=== PATIENT | female | born 1995 | race Caucasian/White ===

== ENCOUNTER 2018-05-09 23:16 | Emergency (ER) | payer OTHER ==
[2018-05-09 23:19] VITALS: BP 120/80; PULSE 130; TEMP 100; BMI 20.5
[2018-05-09] MEDS ORDERED: DEXAMETHASONE SOD PHOSPHATE 10 MG/1 ML VIAL IM ONE (23:39)
[2018-05-09] MEDS ORDERED: DEXAMETHASONE SOD PHOSPHATE 10 MG/1 ML VIAL ONE (23:42)
--- NOTE | 2018-05-09 23:43 | PDOC ---
History of Present Illness - General Chief Complaint: Rash Stated Complaint: RASH Time Seen by Provider: 05/09/18 23:22 History Source: Patient Exam Limitations: No Limitations - History of Present Illness Initial Comments: 05/09/18 23:38 This is a 22-year-old female brought in by her parents for evaluation of a rash. Patient recently finished a five-day course of the sulfate antibiotic. Mother has ALLERGIES to sulfur and child never taken sulfate until she was given at this time by her OB for a UTI. Patient finished a full course and then started to develop a rash. Over the last 24 hours the rash is progressed from just a small amount on her trunk to cover her extremities. Rashes not involve her face or scalp at this time. There is a low-grade fever otherwise no other symptoms. Mucous membranes are not involved. There is no complaints of blistering. PAST MEDICAL HISTORY: no significant history PAST SURGICAL HISTORY: no significant history FAMILY HISTORY: no pertinant history SOCIAL HISTORY: Pt lives with family and is employed. MEDICATIONS: reviewed ALLERGIES: As per nursing notes Review of Systems General: No fevers or chills, no weakness, no weight loss HEENT: No change in vision. No sore throat,. No ear pain CardioVascular: No chest pain or shortness of breath Respiratory:No cough, or wheezing. Gastrointestinal: no nausea, vomitting, diarrhea or constipation, No rectal bleeding Genitourinary: No dysuria, hematuria, or frequency Musculoskeletal: No joint or muscle pain or swelling Neurologic: No headache, vertigo, dizziness or loss of consciousness Psychiatric: nor depression Skin: No rashes or easy bruising Endocrine: no increased thirst or abnormal weight change Allergic: no skin or latex allergy All other systems reviewed and normal GENERAL: The patient is awake, alert, and fully oriented, in no acute distress. HEAD: Normal with no signs of trauma. Mucous membranes are normal EYES: Pupils equal, round and reactive to light, extraocular movements intact, sclera anicteric, conjunctiva clear. EXTREMITIES: Normal range of motion, no edema. NEUROLOGICAL: Normal speech, normal gait. grossly intact PSYCH: Normal mood, normal affect. SKIN: There is a fine macular rash involving bilateral upper and lower extremities trunk and back. There is no bullae formation, Assessment and plan: This is a 22-year-old female with a sulfa drug rash. 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 Patient will be started on steroids with first dose given here as IM and then a Medrol Dosepak sent to her pharmacy. Patient has a appointment with her primary care doctor in 2 days and was told that if she is significantly worse in 24 hours or not better in 48 hours she needs to return to the ED or see her doctor. Patient's appointment with her doctor is in 36 hours. Patient said she will keep. Patient discharged home with her parents. 05/09/18 23:40 Past History - Past Medical History Allergies/Adverse Reactions: Allergies Allergy/AdvReac Type Severity Reaction Status Date / Time Sulfa (Sulfonamide Allergy Verified 05/09/18 23:36 Antibiotics) Home Medications: Ambulatory Orders Methylprednisolone [Medrol Dose John] 4 mg PO ASDIR #21 tablet 05/09/18 Sulfamethoxazole/Trimethoprim [Bactrim Ds -] 1 tab PO DAILY 05/09/18 COPD: No - Immunization History Immunization Up to Date: Yes - Suicide/Smoking/Psychosocial Hx Smoking History: Never smoked Have you smoked in the past 12 months: No Number of Cigarettes Smoked Daily: 0 Information on smoking cessation initiated: No Hx Alcohol Use: No Drug/Substance Use Hx: No Substance Use Type: None *Physical Exam - Vital Signs Last Vital Signs Temp Pulse Resp BP Pulse Ox 100 F H 130 H 14 120/80 100 05/09/18 23:17 05/09/18 23:17 05/09/18 23:17 05/09/18 23:17 05/09/18 23:17 *DC/Admit/Observation/Transfer Diagnosis at time of Disposition: Allergic drug rash due to sulfonamide - Discharge Dispostion Disposition: HOME Condition at time of disposition: Good Decision to Admit order: No - Referrals - Patient Instructions Additional Instructions: Get the prescription filled for the Medrol Dosepak and take as per directed by the pack. Keep your appointment with your DrLaurent on Monday. Return to the ED if you're significantly worse within 24 hours. Return to the emergency department immediately with ANY new, persistent or worsening symptoms. Continue any medications as previously prescribed by your physician. You should follow up with your primary doctor as soon as possible regarding today's emergency department visit. . Please make sure your doctor reviews the results of your emergency evaluation. Thank you for coming to the Emergency Department today for your care. It was a pleasure to see you today. Please note that your evaluation is INCOMPLETE until you follow-up with your doctor. - Post Discharge Activity
== END 2018-05-09 23:49 | disposition home or self-care (01) ==
LOC: FER 23:16
PROC: 3E023GC Introduction of Other Therapeutic Substance into Muscle, Percutaneous Approach (ICD-10-PCS; principal; 2018-05-09)
DX: L27.0 Generalized skin eruption due to drugs and medicaments taken internally (principal)
CPT/HCPCS: 99282-25; J1100